=== PATIENT | female | born 1990 | race Caucasian/White ===

== ENCOUNTER 2024-02-23 11:22 | Emergency (ER) | payer OTHER, SELFPAY ==
[2024-02-23 11:25] VITALS: BP 143/99; PULSE 101; RESP 20; TEMP 36.5; O2SAT 100; BMI 31.3
--- NOTE | 2024-02-23 11:27 | ECG_ITS ---
Test Reason : ALLERGIC REACTION Blood Pressure : / mmHG Vent. Rate : 080 BPM Atrial Rate : 080 BPM P-R Int : 152 ms QRS Dur : 078 ms QT Int : 370 ms P-R-T Axes : 057 077 058 degrees QTc Int : 426 ms Normal sinus rhythm Septal infarct , age undetermined Abnormal ECG When compared with ECG of 16-DEC-2017 07:15, No significant change was found Referred By: Deanna Levin Electronically Signed By:John Davis
--- NOTE | 2024-02-23 11:27 | ED.ALLEREA ---
HPI - Allergic Reaction General Chief complaint: Allergic Reaction Stated complaint: Allergic reaction? Hives, SOB Time Seen by Provider: 02/23/24 11:42 Related Data Previous Rx's ?Medication ?Instructions ?Recorded diphenhydramine HCl 25 mg capsule 25 mg PO TID PRN allergic reaction 02/23/24 (Benadryl) #21 caps famotidine 40 mg tablet (Pepcid) 40 mg PO DAILY 5 days #5 tabs 02/23/24 prednisone 20 mg tablet 40 mg (2 x 20 mg) PO DAILY 5 days 02/23/24 #10 tabs Allergies Allergy/AdvReac Type Severity Reaction Status Date / Time sulfamethoxazole Allergy Intermediate HIVES Verified 02/23/24 11:27 [From BACTRIM] trimethoprim [From BACTRIM] Allergy Intermediate HIVES Verified 02/23/24 11:27 Penicillins [PENICILLINS] Allergy Unknown RASH Verified 02/23/24 11:27 PMF Social History Social History Advance Directives: No Advance Directives Information Provided: Yes Do you have a plan to hurt others: No Plan Physical Exam ED Vital Signs: Vital Signs - 24 hr 02/23/24 11:25 02/23/24 15:39 Temperature 97.7 F 97.7 F Pulse Rate 101 H 101 H Respiratory Rate 20 20 Blood Pressure 143/99 H 143/99 H Pulse Oximetry 100 100 Oxygen Delivery Method Room Air Room Air BMI result Body Mass Index 31.3 Course Course Course Narrative: This is a Rapid Medical Examination (RME) performed by Rosita Levin PA-C in triage. Full HPI, ROS, assessment and treatment plan per primary provider in the Main ED. 33 yo female here for eval of allergic rxn. reports eating 4 mini donuts and a coffee around 1100 (30 mins [employer]). shortly after began to feel SOB and noticed hives to her neck and back. reports taking 4 benadryl [employer]. unclear what she is allergic to. does not know if there were nuts within the donuts of coffee. only reports allergies to antibiotics. + tachycardic to 101, satting 100% on RA. anxious, tremulous. hives noted to neck, anterior chest. no sloughing.v airway patent. speaking in full sentences. coughing. lungs clear. 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 Reevaluation(s) Reevaluation #1: This is a duplicate note. Please see Colin Thompson completed note regarding patient's visit on 02/23/2024. Medications Administered Discontinued Medications Generic Name Dose Route Start Last Admin Trade Name Luis Danielq PRN Reason Stop Dose Admin Famotidine 20 mg 02/23/24 11:43 02/23/24 11:53 Famotidine/Pf 20 Mg/2 Ml Vial IVPUSH 02/23/24 11:44 20 mg ONCE ONE Administration Methylprednisolone Sodium Succinate 125 mg 02/23/24 11:43 02/23/24 11:52 Methylprednisolone Sod Succ 125 Mg/2 Ml Vial IVPUSH 02/23/24 11:44 125 mg ONCE ONE Administration Medical Decision Making Lab Data 02/23/24 11:34 02/23/24 11:34 Labs: Lab Results 02/23/24 Range/Units 11:34 WBC 6.4 (4.8-10.8) X10*3/uL RBC 5.15 (4.20-5.50) X10*6/uL Hgb 13.5 (12.0-16.0) g/dl Hct 42.4 (37.0-47.0) % MCV 82.3 (80.0-98.0) fL MCH 26.2 L (27.0-33.0) pg MCHC 31.8 (31.0-35.0) g/dl RDW 12.3 (11.0-16.0) % Plt Count 375 (160-400) X10*3/uL MPV 9.1 L (9.4-12.3) fL Immature Gran % (Auto) 0.5 H (0.0-0.4) % Neut % (Auto) 55.6 (45-73) % Lymph % (Auto) 32.2 (20-40) % [place] % (Auto) 9.0 (2-11) % Eos % (Auto) 1.9 (0-4) % Baso % (Auto) 0.8 (0-2) % Lymph # (Auto) 2.1 (1.2-4.9) X10*3/uL [place] # (Auto) 0.6 (0.1-1.2) X10*3/uL Eos # (Auto) 0.1 (0.0-0.4) X10*3/uL Baso # (Auto) 0.1 (0.0-0.2) X10*3/uL Abs Immat Gran (auto) 0.03 (0.00-0.03) X10*3/uL Absolute Neuts (auto) 3.6 (2.0-8.3) x10*3/uL Absolute Nucleated RBC 0.000 (0.0-0.012) X10*3/uL Nucleated RBC % (auto) 0.0 (0.0-0.2) /100WBC Sodium 141 (135-145) mmol/L Potassium 4.2 (3.3-5.1) mmol/L Chloride 106 (96-108) mmol/L Carbon Dioxide 26 (22-29) mmol/L Anion Gap 13 (12-20) BUN 12 (9-16) mg/dL Creatinine 0.85 (0.5-1.4) mg/dL Estim Creat Clear Calc 103.1 Estimated GFR > 60 Random Glucose 100 (60-115) mg/dL Calcium 10.1 (8.4-10.2) mg/dL Magnesium 1.8 (1.6-2.6) mg/dL Total Bilirubin 0.2 (0.0-1.0) mg/dL AST 23 (5-31) U/L ALT 38 H (0-31) U/L Alkaline Phosphatase 60 (39-117) U/L Total Protein 7.8 (6.5-8.0) g/dL Albumin 4.4 (3.5-5.0) g/dL Beta HCG, Quant < 2 mIU/mL Discharge Plan Discharge Clinical Impression: Allergic reaction Patient Disposition: Home, Self-Care Instructions: General Allergic Reaction (ED) Additional Instructions: You need follow-up with your primary care provider. You may need a allergy patch test. Return to the ED for swelling of the lips, swelling of tongue, shortness of breath, sensation of throat closing, worsening rash, severe itchiness, fever, chills, peeling rash, or any other concerning symptoms. Prescriptions: New diphenhydramine HCl [Benadryl] 25 mg capsule 25 mg PO TID PRN (Reason: allergic reaction) Qty: 21 0RF prednisone 20 mg tablet 40 mg PO DAILY 5 Days Qty: 10 0RF famotidine [Pepcid] 40 mg tablet 40 mg PO DAILY 5 Days Qty: 5 0RF Stand Alone Forms: Work/School Release Interventions: ED Discharge Assessment Last Done: 02/23/24 15:39 Discharge Date/Time: 02/23/24 15:40 Print Language: Setswana
[2024-02-23 11:38] LABS: MANUAL DIFF FLAG NO
--- NOTE | 2024-02-23 11:47 | ED_ITS ---
HPI - General Adult General Chief complaint: Allergic Reaction Stated complaint: Allergic reaction? Hives, SOB Time Seen by Provider: 02/23/24 11:42 Source: patient Mode of arrival: ambulatory Limitations: no limitations History of Present Illness ED Provider: Colin CHAVEZ HPI narrative: 33 yold female presents to the ED for allergic reaction after eating pre- packaged donuts. Patient states soon after eating donuts should broke out into hives with coughing and SOB. patietnt took 100mg of benadyl. Related Data Previous Rx's ?Medication ?Instructions ?Recorded diphenhydramine HCl 25 mg capsule 25 mg PO TID PRN allergic reaction 02/23/24 (Benadryl) #21 caps famotidine 40 mg tablet (Pepcid) 40 mg PO DAILY 5 days #5 tabs 02/23/24 prednisone 20 mg tablet 40 mg (2 x 20 mg) PO DAILY 5 days 02/23/24 #10 tabs Allergies Allergy/AdvReac Type Severity Reaction Status Date / Time sulfamethoxazole Allergy Intermediate HIVES Verified 02/23/24 11:27 [From BACTRIM] trimethoprim [From BACTRIM] Allergy Intermediate HIVES Verified 02/23/24 11:27 Penicillins [PENICILLINS] Allergy Unknown RASH Verified 02/23/24 11:27 Review of Systems 2 Review of Systems: allergic reaction Yes all other systems are reviewed and are negative [facility] Social History Social History Advance Directives: No Advance Directives Information Provided: Yes Do you have a plan to hurt others: No Plan Physical Exam ED Vital Signs: Vital Signs - 24 hr 02/23/24 11:25 02/23/24 15:39 Temperature 97.7 F 97.7 F Pulse Rate 101 H 101 H Respiratory Rate 20 20 Blood Pressure 143/99 H 143/99 H Pulse Oximetry 100 100 Oxygen Delivery Method Room Air Room Air BMI result Body Mass Index 31.3 Const General: cooperative, healthy appearing, comfortable, no acute distress, well developed, alert and awake Orientation/consciousness: patient oriented x3 HENMT Other: Positive for hives on face without any lip swelling, tongue swelling, or uvula swelling. Head: Yes normal to inspection, Yes No palpable skull fracture present and Yes normocephalic Eyes General: appearance normal, both eyes and all related structures Neck Other: Positive for hives Neck: Yes normal visual inspection, Yes full ROM, Yes no lymphadenopathy and Yes no meningeal signs Chest Other: Positive hives Chest palpation & inspection: normal inspection of the chest and normal palpation of entire chest wall Resp Effort & Inspection: normal respiratory effort and able to speak in complete sentences Auscultation: clear to auscultation bilaterally Cardio Jugular venous distension: no JVD Heart sounds: S1 normal heart sound present and S2 normal heart sound present GI Other: Positive hives Inspection: Yes normal to inspection Palpation (GI): Soft to palpation, not firm, nontender, no guarding and not rigid General: Yes no CVA tenderness Back/Spine/Pelvis Other: hives Back: no CVA tenderness and No back tenderness Skin General skin exam: no rashes or lesions noted, elasticity normal and turgor normal Neuro General: patient oriented x3, gait normal, tone normal, moves all extremities, Normal light touch and pain sensation, no meningeal signs, no focal motor deficits, CN's II-XI intact bilaterally and normal sensation to monofilament Extrem General: Yes normal to inspection, Yes full ROM and Yes capillary refill normal Psych Appearance: grossly normal, well kempt and not disheveled Medications Administered Discontinued Medications Generic Name Dose Route Start Last Admin Trade Name Freq PRN Reason Stop Dose Admin Famotidine 20 mg 02/23/24 11:43 02/23/24 11:53 Famotidine/Pf 20 Mg/2 Ml Vial IVPUSH 02/23/24 11:44 20 mg ONCE ONE Administration Methylprednisolone Sodium Succinate 125 mg 02/23/24 11:43 02/23/24 11:52 Methylprednisolone Sod Succ 125 Mg/2 Ml Vial IVPUSH 02/23/24 11:44 125 mg ONCE ONE Administration Medical Decision Making Medical Decision Making [facility] Narrative: 33-year-old presents as allergic reaction. Not in any respiratory distress. Patient has already received Benadryl 100 mg. Will give Solu-Medrol 125 and Pepcid and re-evaluate. Lungs are clear. 3:31pm: Patient is observed in the ED for 4 hours. Hives resolved. Patient not anaphylaxis. Patient informed to follow-up with primary care provider. Patient discharged with Benadryl, prednisone, and Pepcid. Patient explained worrisome signs and informed to return to the ED immediately. Not suspecting David Elton syndrome, cellulitis, erysipelas, shingles, or any other life- threatening concerning etiology Differential Diagnosis Differential Diagnoses: The differential diagnosis associated with the presentation includes (Allergic reaction) Admission/Observation Consideration of admission/observation: Escalation of care including admission/observation considered Lab Data 02/23/24 11:34 02/23/24 11:34 Labs: Lab Results 02/23/24 Range/Units 11:34 WBC 6.4 (4.8-10.8) X10*3/uL RBC 5.15 (4.20-5.50) X10*6/uL Hgb 13.5 (12.0-16.0) g/dl Hct 42.4 (37.0-47.0) % MCV 82.3 (80.0-98.0) fL MCH 26.2 L (27.0-33.0) pg MCHC 31.8 (31.0-35.0) g/dl RDW 12.3 (11.0-16.0) % Plt Count 375 (160-400) X10*3/uL MPV 9.1 L (9.4-12.3) fL Immature Gran % (Auto) 0.5 H (0.0-0.4) % Neut % (Auto) 55.6 (45-73) % Lymph % (Auto) 32.2 (20-40) % [place] % (Auto) 9.0 (2-11) % Eos % (Auto) 1.9 (0-4) % Baso % (Auto) 0.8 (0-2) % Lymph # (Auto) 2.1 (1.2-4.9) X10*3/uL [place] # (Auto) 0.6 (0.1-1.2) X10*3/uL Eos # (Auto) 0.1 (0.0-0.4) X10*3/uL Baso # (Auto) 0.1 (0.0-0.2) X10*3/uL Abs Immat Gran (auto) 0.03 (0.00-0.03) X10*3/uL Absolute Neuts (auto) 3.6 (2.0-8.3) x10*3/uL Absolute Nucleated RBC 0.000 (0.0-0.012) X10*3/uL Nucleated RBC % (auto) 0.0 (0.0-0.2) /100WBC Sodium 141 (135-145) mmol/L Potassium 4.2 (3.3-5.1) mmol/L Chloride 106 (96-108) mmol/L Carbon Dioxide 26 (22-29) mmol/L Anion Gap 13 (12-20) BUN 12 (9-16) mg/dL Creatinine 0.85 (0.5-1.4) mg/dL Estim Creat Clear Calc 103.1 Estimated GFR > 60 Random Glucose 100 (60-115) mg/dL Calcium 10.1 (8.4-10.2) mg/dL Magnesium 1.8 (1.6-2.6) mg/dL Total Bilirubin 0.2 (0.0-1.0) mg/dL AST 23 (5-31) U/L ALT 38 H (0-31) U/L Alkaline Phosphatase 60 (39-117) U/L Total Protein 7.8 (6.5-8.0) g/dL Albumin 4.4 (3.5-5.0) g/dL Beta HCG, Quant < 2 mIU/mL Independent Interpretation I performed an independent interpretation of an: EKG (EKG negative STEMI) Independent Historian Clinical information obtained from an independent historian. History obtained from or confirmed by: Other (Patient) External Record Review External record reviewed: Other (Prior visits) Discharge Plan Discharge Clinical Impression: Allergic reaction Patient Disposition: Home, Self-Care Instructions: General Allergic Reaction (ED) Additional Instructions: You need follow-up with your primary care provider. You may need a allergy patch test. Return to the ED for swelling of the lips, swelling of tongue, shortness of breath, sensation of throat closing, worsening rash, severe itchiness, fever, chills, peeling rash, or any other concerning symptoms. Prescriptions: New diphenhydramine HCl [Benadryl] 25 mg capsule 25 mg PO TID PRN (Reason: allergic reaction) Qty: 21 0RF prednisone 20 mg tablet 40 mg PO DAILY 5 Days Qty: 10 0RF famotidine [Pepcid] 40 mg tablet 40 mg PO DAILY 5 Days Qty: 5 0RF Stand Alone Forms: Work/School Release Interventions: ED Discharge Assessment Last Done: 02/23/24 15:39 Discharge Date/Time: 02/23/24 15:40 Print Language: Maltese
[2024-02-23 11:49] LABS: Basophils Absolute Auto 0.1 X10*3/uL (0.0-0.2); Basophils Percent Auto 0.8 % (0-2); Eosinophils Absolute Auto 0.1 X10*3/uL (0.0-0.4); Eosinophils Percent Auto 1.9 % (0-4); Hematocrit 42.4 % (37.0-47.0); Hemoglobin 13.5 g/dl (12.0-16.0); Imm Gran Abs Auto 0.03 X10*3/uL (0.00-0.03); Imm Gran Pct Auto 0.5 % (0.0-0.4); Lymphocytes Absolute Auto 2.1 X10*3/uL (1.2-4.9); Lymphocytes Percent Auto 32.2 % (20-40); Mean Corpuscular HGB Conc 31.8 g/dl (31.0-35.0); Mean Corpuscular Hemoglobin 26.2 pg (27.0-33.0); Mean Corpuscular Volume 82.3 fL (80.0-98.0); Mean Platelet Volume 9.1 fL (9.4-12.3); Monocytes Absolute Auto 0.6 X10*3/uL (0.1-1.2); Neutrophils Absolute Auto 3.6 x10*3/uL (2.0-8.3); Neutrophils Percent Auto 55.6 % (45-73); Platelet Count 375 X10*3/uL (160-400); Red Blood Count 5.15 X10*6/uL (4.20-5.50); Red Cell Distribution Width 12.3 % (11.0-16.0); White Blood Count 6.4 X10*3/uL (4.8-10.8)
[2024-02-23] MEDS: methylPREDNISolone Sod Succ 125 MG/2 ML VIAL IVPUSH (11:52)
[2024-02-23] MEDS: Famotidine/PF 20 MG/2 ML VIAL IVPUSH (11:53)
[2024-02-23 12:01] LABS: Alanine Aminotransferase 38 U/L (0-31); Albumin Level 4.4 g/dL (3.5-5.0); Alkaline Phosphatase 60 U/L (39-117); Anion Gap 13 (12-20); Aspartate Amino Transferase 23 U/L (5-31); Bilirubin Total 0.2 mg/dL (0.0-1.0); Blood Urea Nitrogen 12 mg/dL (9-16); Calcium 10.1 mg/dL (8.4-10.2); Carbon Dioxide 26 mmol/L (22-29); Chloride 106 mmol/L (96-108); Creatinine Clr Calc Pharmacy 103.1; Estimated Glomerular Filt Rate > 60; Glucose Random 100 mg/dL (60-115); Magnesium 1.8 mg/dL (1.6-2.6); Potassium 4.2 mmol/L (3.3-5.1); Sodium 141 mmol/L (135-145); Total Protein 7.8 g/dL (6.5-8.0)
[2024-02-23 12:02] LABS: HCG Quantitative < 2 mIU/mL
[2024-02-23 15:39] VITALS: BP 143/99; PULSE 101; RESP 20; TEMP 36.5; O2SAT 100
== END 2024-02-23 15:40 | disposition home or self-care (01) ==
PROVIDERS: Physician Assistant Medical; Emergency Provider Student in an Organized Health Care Education/Training Program; PCP Internal Medicine
DX: L50.0 Allergic urticaria (principal); R06.02 Shortness of breath; R05.9 Cough, unspecified; R94.31 Abnormal electrocardiogram [ECG] [EKG]; T78.1XXA Other adverse food reactions, not elsewhere classified, initial encounter; X58.XXXA Exposure to other specified factors, initial encounter; Z79.899 Other long term (current) drug therapy
CPT/HCPCS: 36415; 80053; 83735; 84702; 85025; 93005; 96374; 96375; 99283; 99284; J2919

== ENCOUNTER → 2024-02-23 11:27 | Outpatient (BNV) | payer OTHER, SELFPAY | PROVIDERS: Emergency Provider Student in an Organized Health Care Education/Training Program; PCP Internal Medicine; Visit Provider Internal Medicine Cardiovascular Disease | DX: R94.31 Abnormal electrocardiogram [ECG] [EKG] (principal) | CPT/HCPCS: 93010 ==

== ENCOUNTER → 2025-03-10 00:22 | Outpatient (BNV) | payer OTHER, SELFPAY | PROVIDERS: Emergency Provider Emergency Medicine; PCP Internal Medicine; Visit Provider Radiology Diagnostic Radiology | DX: R07.89 Other chest pain (principal) | CPT/HCPCS: 71046 ==

== ENCOUNTER 2025-03-10 23:29 | Emergency (ER) | payer OTHER, SELFPAY ==
--- OUTSIDE RECORDS SUMMARY | 2025-03-08 14:00 | XMS_ITS | Encounter Summary ---
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 Name Role Phone Edouard Gomez MD Primary Care Provider [phone] Reason for Referral * Other Medical (Routine) - Closed Specialty Diagnoses / Procedures Referred By Mariaelena iglesias Referred To Contact Sleep Medicine Diagnoses Obesity (BMI 30-39.9) Snoring Procedures Polysomnography Phoebe Caceres PA [address] [place] [address] Phone: tel: fax: Sleep Medicine Services [address] [address] Phone: tel: fax: Referral ID Status Reason Start Date Expiration Date Visits Re quested Visits Authorized [id number] Closed 03/08/2025 03/08/2026 1 1 * Medications - Closed Specialty Diagnoses / Procedures Referred By Mariaelena iglesias Referred To Contact Diagnoses Obesity (BMI 30-39.9) Phoebe Caceres PA [address] [place] [address] Phone: tel: fax: Referral ID Status Reason Start Date Expiration Date Visits Re quested Visits Authorized [id number] Closed 1 1 Reason for Visit * Reason Comments Follow-up Encounter Details Date Type Department Care Team ([facility] Contact Info) Description 03/08/2025 2:00 PM EST Office Visit Adult Medicine [facility] [address] [place], [place] [phone] Phoebe Caceres PA [address], [place] Obesity (BMI 30-39.9) (Primary Dx); Snoring; Mild persistent asthma with acute exacerbation Social History Tobacco Use Types Packs/Day Years Used Date Smoking Tobacco: Former Smokeless Tobacco: Never Tobacco Cessation:Counseling Given: Not Answered Alcohol Use Standard Drinks/Week Comments Yes 0 (1 standard drink = 0.6 oz pur e alcohol) Housing Instability Answer Date Recorde d Are you worried that in the next 2 months you may not have stable housing? No 03/07/2025 Food Access & Nutrition Answer Date Rec orded Do you have access to a vari ety of food including fruits and vegetables? Yes 03/07/2025 Access to Healthcare Answer Date Record ed Within the last 3 months, ho w many times did you visit the emergency department for your medical care? 0 03/07/2025 Health Literacy Answer Date Recorded How often do you need to hav e someone help you when you read instructions, pamphlets, or other written material from your doctor or pharmacy? Never 03/07/2025 Caregiver: How often do you need to have someone help you when you read instructions, pamphlets, or other written material from your doctor or pharmacy? Not on file 03/07/2025 Financial Risk Answer Date Recorded How hard is it for you to pa y for the very basics like food, housing, medical care, and air conditioning / heating? Not very hard 03/07/2025 Transportation Answer Date Recorded Has the lack of transportati on kept you from meetings, work, or from getting things needed for daily living? No Has the lack of transportati on kept you from medical appointments or from getting medications? No 03/07/2025 Social Isolation Answer Date Recorded How often do you feel lonely or isolated from th ose around you? Never 03/07/2025 Food Risk Answer Date Recorded Within the past 12 months we worried whether our food would run out before we got money to buy more. Never true 03/07/2025 Within the past 12 months th e food we bought just didn't last and we didn't have money to get more. Never true 03/07/2025 Dependent Care Answer Date Recorded Do you need help finding or paying for care for your loved ones. For example, child care team lead or elderly care for an older adult? No 03/07/2025 Education Answer Date Recorded Do you think completing more education or training, like finishing a GED, going to college, or learning a trade, would be helpful for you? No 03/07/2025 Employment and Income Answer Date Recor ded During the last four weeks, have you been actively looking for work? No 03/07/2025 Living Situation Answer Date Recorded What is your living situation? Unrecognized valu e 03/07/2025 Comments No Sex and Gender Information Value Date Recorded Sex Assigned at Not on file Legal Sex Female 3:39 AM EST Gender Identity Not on file Sexual Orientation Not on file documented as of this encounter Last Filed Vital Signs Vital Sign Reading Time Taken Comments Blood Pressure 134/84 03/08/2025 2:02 PM EST Pulse 85 03/08/2025 2:02 PM EST Temperature 36.2 C (97.1 F) 03/08/2025 2:02 PM EST Respiratory Rate 15 03/08/2025 2:02 PM EST Oxygen Saturation 98% 03/08/2025 2:02 PM EST Inhaled Oxygen Concentration - - Weight 91.4 kg (201 lb 6.4 oz) 03/08/2025 2:02 P M EST Height 165.1 cm (5' 5 ) 03/08/2025 2:02 PM EST Body Mass Index 33.51 03/08/2025 2:02 PM EST documented in this encounter Ordered Prescriptions Prescription Sig Dispense Quantity Refills Last Filled Start Date End Date albuterol HFA (Proventil HFA) 90 mcg/actuation inhaler Inhale 2 puffs by mouth every 4 (four) hours if needed for wheezing or shortness of breath. 6.7 g 03/08/2025 12/19/202 6 tirzepatide, weight loss, (Zepbound) 2.5 mg/0.5 mL injectionIndicatio ns:Obesity (BMI 30-39.9) Inject 0.5 mL (2.5 mg total) under the skin every 7 (seven) days. 2 mL 1 03/08/2025 budesonide (PULMICORT) 90 mcg/actuation inhaler Inhale 1 puff by mouth 2 (two) times a day. Rinse mouth with water after use to reduce aftertaste and incidence of candidiasis. Do not swallow. 1 each 03/08/2025 5 documented in this encounter Progress Notes * JAYDE Sparks - 03/08/2025 2:00 PM EST CHIEF COMPLAINT: Follow-up IDENTIFIER: Marj Rasmussen is a 34 y.o. old female. Past medical history: Obesity History of Present Illness The patient presents for weight loss, sleep apnea, and shortness of breath. Weight Loss - She has gained weight from 166 pounds in 12/2022 to 205 pounds over two years, with nighttime overeating contributing. - She plans daily 30-minute treadmill walks and reducing nighttime eating. - Her diet varies, with large nighttime food intake leading to >3000 daily calories. - She has an appointment with a weight management clinic on 04/15/2025. 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 - She works night shifts from 2 PM to 2 AM three days a week and does not eat during shifts. - Previous GLP-1 agonists led to 25-pound weight loss, regained after discontinuation due to nausea. - She acknowledges the need to improve eating habits. Shortness of Breath - She experiences shortness of breath, increased inhaler use, and sought urgent care on Tuesday. - Chest x-ray was clear, prescribed steroids discontinued due to jitteriness and panic. - Lung function not fully recovered, uses albuterol twice daily. - Vapes nicotine since 2018, and smokes marijuana nightly for sleep. - No wheezing or shortness of breath currently, but always short of breath when walking. - Slight wheezing in bed relieved by inhaler. - Provided with nebulizer on Tuesday. - Previously used Pulmicort with difficulty. Sleep Apnea - She has loud snoring, gasping, and whistling during sleep for one year, worsening recently. - Symptoms present even at 135 pounds, worsened with new medication. 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 Diet: Consumes large amounts of food at night, minimal daytime eating Tobacco: Vapes nicotine since 2018 Recreational Drugs: Smokes marijuana nightly Sleep: Works night shifts from 2 PM to 2 AM three days a week, smokes marijuana nightly to aid sleep Wt Readings from Last 10 Encounters: 03/08/25 91.4 kg (201 lb 6.4 oz) 05/24/24 90.7 kg (200 lb) 12/14/23 79.4 kg (175 lb) 11/10/23 82.1 kg (181 lb) 10/19/23 81.6 kg (180 lb) 07/06/23 85.3 kg (188 lb) 06/27/23 85.4 kg (188 lb 3.2 oz) 05/11/23 82.4 kg (181 lb 9.6 oz) 02/08/23 79.8 kg (176 lb) 02/09/22 68.5 kg (151 lb) ROS: See HPI PAST MEDICAL HISTORY: Patient Active Problem List Diagnosis Date Noted Cannabis use disorder 10/19/2023 Obesity (BMI 30-39.9) 09/14/2023 Pure hypercholesterolemia 05/11/2023 Overweight (BMI 25.0-29.9) 05/11/2023 Bipolar 1 disorder ([facility] V24, [facility] V28) 05/11/2023 Elevated blood pressure reading 05/11/2023 Palpitations 12/25/2021 Irregular heart rate 12/25/2021 Chest pain 12/25/2021 Generalized weakness 12/25/2021 Nausea vomiting and diarrhea 06/13/2020 Generalized abdominal pain 06/13/2020 Appendicolith 06/13/2020 Anal fissure 04/04/2009 Surgical History[1] SOCIAL HISTORY: Social History Tobacco Use Smoking status: Former Smokeless tobacco: Never Substance Use Topics Alcohol use: Yes FAMILY HISTORY: Family History[2] Family Status Relation Name Status Father (Not Specified) PGF (Not Specified) Mother (Not Specified) No partnership data on file MEDICATIONS DISCONTINUED/REORDERED: Medications Discontinued During This Encounter Medication Reason buPROPion XL (WELLBUTRIN XL) 150 mg 24 hr tablet Therapy completed orlistat (XenicaL) 120 mg capsule Therapy completed ACTIVE MEDICATIONS: Medications Taking[3] ALLERGIES: Current Allergies[4] PHYSICAL EXAM: Vitals: 03/08/25 1402 BP: 134/84 Pulse: 85 Resp: 15 Temp: 36.2 ??C (97.1 ??F) SpO2: 98% Physical Exam Constitutional: Appearance: Normal appearance. She is not ill-appearing. Cardiovascular: Rate and Rhythm: Normal rate and regular rhythm. Heart sounds: No murmur heard. Neurological: Mental Status: She is alert. LABS: Results for orders placed or performed in visit on 05/25/24 Thyroid stimulating hormone with reflex to free t4 and free t3 Collection Time: 05/25/24 11:48 AM Result Value Ref Range TSH 1.25 0.40 - 4.00 mcIU/mL Cortisol Collection Time: 05/25/24 11:48 AM Result Value Ref Range Cortisol 13.0 mcg/dL Lipid panel with reflex to direct LDL Collection Time: 05/25/24 11:48 AM Result Value Ref Range Cholesterol 147 0 - 200 mg/dL Triglycerides 105 0 - 150 mg/dL HDL 47 >=40 mg/dL LDL Calculated 79 0 - 100 mg/dL VLDL Cholesterol Xavier 21 mg/dL Non HDL Chol. (LDL+VLDL) 100 <145 mg/dL Chol/HDL Ratio 3.1 0.0 - 4.4 IMAGING: No imaging ordered IMPRESSION: 1. Obesity (BMI 30-39.9) 2. Snoring 3. Mild persistent asthma with acute exacerbation Assessment & Plan 1. Obesity - Nocturnal eating and marijuana use may stimulate appetite. - Advised to consume majority of calories during the day and limit daily intake - Emphasized lifestyle modifications with medication for effective weight loss. Encouraged gradual exercise incorporation. - No family history of thyroid disorders, no history of pancreatitis - Prescribed Zepbound, instructed on administration. Advised alternative sleep induction methods instead of marijuana. 2. Snoring: suspected sleep apnea - Referred for sleep study to confirm diagnosis. - If confirmed, CPAP machine necessary for treatment. 3. Asthma with recent exacerbation - Recently was on prednisone - She is still experiencing intermittent wheezing - Prescribed Pulmicort twice daily, refill for albuterol. - Will obtain report from [facility] for further evaluation. Follow-up - Follow up in 6 weeks. I have obtained verbal consent from Marj Noriega Catherinejose f prior to the recording. I have advised Marj Rasmussen that she may refuse the recording and require the recording to be turned off at any time during this encounter. I have applied the code G2211 to this patient's visit as part of the primary care provider team dealing with multiple comorbid conditions, coordinating with the referrals and health maintenance. All questions and concerns were addressed. Marj Rasmussen verbalizes understanding and agreeswith this treatment plan. Patient was reminded to call or return to the office if any new or existing problems arise. Orders Placed This Encounter Procedures Polysomnography None JAYDE Sparks on 03/08/2025 at 2:42 PM EST Today's documentation was made using voice recognition software.This note may contain grammatical errors secondary to this software. [1] Past Surgical History: Procedure Laterality Date FLEXIBLE SIGMOIDOSCOPY 04/04/2009 PROCEDURE: SD SIGMOIDOSCOPY FLX DX W/COLLJ SPEC BR/WA IF PFRMD; COMMENT: Normal to 60 cm [2] Family History Problem Relation Name Age of Onset Diabetes Father Hypertension Father Colon cancer Paternal Grandfather Depression Mother [3] Outpatient Medications Marked as Taking for the 03/08/25 encounter (Office Visit) with JAYDE Sparks Medication Sig Dispense Refill OXcarbazepine (TRILEPTAL) 150 mg tablet Take 2 tablets (300 mg total) by mouth 2 (two) times a day. [4] Allergies Allergen Reactions Paroxetine Manic reaction Penicillin G Benzathine hives Sulfamethoxazole-Trimethoprim Rash documented in this encounter Plan of Treatment Upcoming Encounters Date Type Department Care Team (Late st Contact Info) Description 04/19/2025 11:15 AM EST Office Visit Adult Medicine [address] [phone] Phoebe Caceres PA [address] [place] [address] Scheduled Orders Name Type Priority Associated Diagnoses Orde r Schedule Polysomnography Sleep Center Routine Obesity (BMI 30-39.9) Snoring 1 Occurrences starting 03/08/2025 until 03/08/2026 documented as of this encounter Visit Diagnoses Diagnosis Obesity (BMI 30-39.9)- Primary Snoring Other dyspnea and respiratory abnormality Mild persistent asthma with acute exacerbation documented in this encounter Discontinued Medications Medication Sig Discontinue Reason Start Date End Da te buPROPion XL (WELLBUTRIN XL) 150 mg 24 hr tablet 1 tablet (150 mg total). Therapy completed 05/16/2024 03/08/2025 orlistat (XenicaL) 120 mg capsuleIndications:Obesi ty (BMI 30-39.9) Take 1 capsule (120 mg total) by mouth 3 (three) times a day with meals. Therapy completed 05/24/2024 03/08/2025 documented as of this encounter Historical Medications * This list may reflect changes made after this encounter. OXcarbazepine (TRILEPTAL) 150 mg tablet Take 2 tablets (300 mg total) by mouth 2 (two) times a day. 02/26/2025 added in this encounter Additional Health Concerns Assessment Noted Time PHQ-9 Depression Total Score: 0 03/07/20 25 8:43 PM EST documented as of this encounter Care Teams Identification Printing Machine Setter Relationship Specialty Start Date End Date Edouard Gomez MD [address] [place] [address] PCP - General Internal Medicine 01/06/22 documented as of this encounter
--- NOTE | ~2025-03-10 | XR_ITS ---
CLINICAL HISTORY: left sided chest pain 2 view chest x-ray. Comparison: None provided. Findings: No consolidation, pneumothorax, or effusion. Heart size normal. No acute fracture visualized. Impression: 1. No acute cardiopulmonary process. No focal pulmonary consolidation. This document has been electronically signed by: Polo Brown MD on 03/11/2025 01:04:06
--- NOTE | 2025-03-10 23:30 | ECG_ITS ---
Test Reason : CHEST PAIN Blood Pressure : */* mmHG Vent. Rate : 102 BPM Atrial Rate : 102 BPM P-R Int : 134 ms QRS Dur : 74 ms QT Int : 338 ms P-R-T Axes : 23 83 55 degrees QTcB Int : 440 ms Sinus tachycardia Septal infarct (cited on or before 23-Feb-2024) Abnormal ECG When compared with ECG of 23-Feb-2024 11:50, No significant change was found Referred By: Generic ED Physician Electronically Signed By: SANDY AHMADI MD
[2025-03-10 23:34] VITALS: BP 161/107; PULSE 101; RESP 22; O2SAT 100; BMI 34.3
--- NOTE | 2025-03-10 23:51 | ED.CHESTPAIN ---
HPI - Chest Pain General Chief Complaint: Chest Pain Stated Complaint: chest pain Time Seen by Provider: 03/10/25 23:51 History of Present Illness ED Provider: Tiara DENISE narrative: The patient is a 34-year-old female with a history of asthma. She says that she has had some symptoms of chest pain and shortness of breath for the last few days. These symptoms became significantly worse this evening and she came to the emergency room. She says that she has pain in her mid chest when she breathes. She has had no pain or swelling in her legs. She has had no definite fever, sweats, chills. She says that last week she was having some shortness of breath and she was put on a course of prednisone that she did not really feel was helpful. She has also been under a great deal of stress because of a health problem with her dog. The patient is not on oral contraceptives or any similar hormonal therapy. The patient has been using nicotine vaping. She is trying to wean herself off the nicotine vaping. Related Data Home Medications ?Medication ?Instructions ?Recorded ?Confirmed aripiprazole 5 mg tablet (Abilify) 5 mg PO DAILY 02/07/25 lorazepam 1 mg tablet 1 mg PO BID PRN 02/07/25 oxcarbazepine 150 mg tablet 300 mg PO 02/07/25 Allergies Allergy/AdvReac Type Severity Reaction Status Date / Time sulfamethoxazole (From Allergy Intermediate HIVES Verified 03/10/25 23:34 BACTRIM) trimethoprim (From BACTRIM) Allergy Intermediate HIVES Verified 03/10/25 23:34 Penicillins (PENICILLINS) Allergy Unknown RASH Verified 03/10/25 23:34 Review of Systems Review of Systems: Yes all other systems are reviewed and are negative [facility] Past Medical History Surgical History Hx of cholecystectomy History of endoscopy Hx of colonoscopy Family History Family History (Updated 02/07/25 @ 10:53 by Juliana Bravo CMA) Mother No problems noted. Father No problems noted. Social History Social History (Updated 02/07/25 @ 10:54 by Juliana Bravo CMA) Alcohol intake: current Alcohol intake frequency: does not drink Patient Tobacco Use Status: Never used Tobacco Smoked in Last 30 Days: No e-Cigarette/Vaping Use: Currently Using Use of substances other than those prescribed or required for medical reasons: No Advance Directives: No Advance Directives Information Provided: No Do you have a plan to hurt others: No Plan Patient : No Physical Exam Vital Signs: Vital Signs: Last Vital Signs Temp 0 F L 03/11/25 02:04 Pulse 84 03/11/25 02:04 Resp 18 03/11/25 02:04 BP 138/91 H 03/11/25 02:04 Pulse Ox 99 03/11/25 02:04 O2 Del Method Room Air 03/11/25 02:04 BMI result Body Mass Index 34.3 Const: Other: The patient is awake, alert, pleasant, cooperative. She does not appear in overt distress. Orientation/consciousness: patient oriented x3 HEENT: Other: The face is symmetrical. Mucous membranes moist. Eyes: Other: Pupils are round equal, conjunctivae are clear, extraocular movements intact Neck: Neck: Yes normal visual inspection, Yes full ROM and Yes no JVD Chest: Other: There is some left-sided chest wall tenderness Resp: Effort & Inspection: normal respiratory effort Auscultation: clear to auscultation bilaterally Cardio: Rate: tachycardic Rhythm: regular rhythm Heart sounds: S1 normal heart sound present and S2 normal heart sound present GI: Other: Pupils are round equal, conjunctivae are clear, extraocular movements intact Skin: Other: The skin is dry and unremarkable Neuro: General: patient oriented x3, gait normal, tone normal, moves all extremities, no focal motor deficits and CN's II-XI intact bilaterally Extrem: Other: There is no calf swelling or tenderness. No asymmetry. No peripheral edema. Medications Administered Discontinued Medications Generic Name Dose Route Start Last Admin Trade Name Freq PRN Reason Stop Dose Admin Albuterol/Ipratropium 3 ml 03/11/25 00:19 03/11/25 00:34 Albuterol/Iprat 2.5/0.5mg 3 Ml Ampul.Neb INHALE 03/11/25 00:20 3 ml ONCE ONE Administration Sodium Chloride 1,000 mls @ 999 mls/hr 03/11/25 00:15 03/11/25 01:43 Ns IV 03/11/25 01:15 Infused .Q1H1M SATINDER Infusion Acetaminophen 1,000 mg in 100 mls @ 400 mls/hr 03/11/25 00:47 03/11/25 01:43 Ofirmev IV 03/11/25 01:01 Infused ONCE ONE Infusion Ketorolac Tromethamine 15 mg 03/11/25 00:47 03/11/25 01:16 Ketorolac Tromethamine 15 Mg/Ml Vial IVPUSH 03/11/25 00:48 15 mg ONCE ONE Administration Medical Decision Making Medical Decision Making [facility] Narrative: the patient is a 34-year-old female with a history of asthma who has been having some respiratory symptoms intermittently over the last week or 2. She was put on a course of prednisone for 4 days starting 7 days ago. She also uses nicotine vapes although she is trying to cut back. This evening her symptoms worsened significantly with a sense of anterior chest pain and pain with breathing. On exam the patient had fairly clear lungs bilaterally. She was somewhat hypertensive and tachycardic. Overall my suspicion for a pulmonary embolism was not very high. She was somewhat tachycardic so a D-dimer was sent. This was undetectable. I think this makes a pulmonary embolism extremely unlikely. At the patient's request she was given a bronchodilator updraft treatment. She reported that this helped his shortness of breath a great deal. she continued to complain of pains in her chest. She was given ketorolac and IV acetaminophen. Her chest x-ray is clear. She has tested negative for the flu. Overall the patient has been reassured. I think she may be discharged. She says that she has a prescription for Pulmicort waiting for her. She can pick this up tomorrow she thinks. On re-examination the patient had very clear lungs. The patient says that she does not enjoy being on prednisone. I am not sure there is a clear indication for prednisone. She will be discharged with reassurance and with instructions to continue her Pulmicort and to follow up with the regular doctor. She was given a work note for the next 2 days. She should return to the emergency room if worse. Lab Data 03/10/25 23:48 03/10/25 23:48 Labs: Lab Results 03/10/25 03/11/25 Range/Units 23:48 00:15 WBC 11.4 H (4.8-10.8) X10*3/uL RBC 5.11 (4.20-5.50) X10*6/uL Hgb 13.6 (12.0-16.0) g/dl Hct 42.0 (37.0-47.0) % MCV 82.2 (80.0-98.0) fL MCH 26.6 L (27.0-33.0) pg MCHC 32.4 (31.0-35.0) g/dl RDW 12.8 (11.0-16.0) % Plt Count 341 (160-400) X10*3/uL MPV 8.8 L (9.4-12.3) fL Immature Gran % (Auto) 0.4 (0.0-0.4) % Neut % (Auto) 64.0 (45-73) % Lymph % (Auto) 26.4 (20-40) % Carroll % (Auto) 7.1 (2-11) % Eos % (Auto) 1.7 (0-4) % Baso % (Auto) 0.4 (0-2) % Lymph # (Auto) 3.0 (1.2-4.9) X10*3/uL Carroll # (Auto) 0.8 (0.1-1.2) X10*3/uL Eos # (Auto) 0.2 (0.0-0.4) X10*3/uL Baso # (Auto) 0.1 (0.0-0.2) X10*3/uL Abs Immat Gran (auto) 0.05 H (0.00-0.03) X10*3/uL Absolute Neuts (auto) 7.3 (2.0-8.3) x10*3/uL Absolute Nucleated RBC 0.000 (0.0-0.012) X10*3/uL Nucleated RBC % (auto) 0.0 (0.0-0.2) /100WBC D-Dimer High Sensitivty < 150 NG/ML Sodium 138 (135-145) mmol/L Potassium 4.0 (3.3-5.1) mmol/L Chloride 106 (96-108) mmol/L Carbon Dioxide 24 (22-29) mmol/L Anion Gap 12 (12-20) BUN 12 (9-16) mg/dL Creatinine 0.86 (0.5-1.4) mg/dL Estim Creat Clear Calc 102.2 Estimated GFR > 60 Random Glucose 117 H (60-115) mg/dL Calcium 9.7 (8.4-10.2) mg/dL Total Bilirubin 0.2 (0.0-1.0) mg/dL Direct Bilirubin < 0.2 (0.0-0.5) mg/dL AST 24 (5-31) U/L ALT 43 H (0-31) U/L Alkaline Phosphatase 68 (39-117) U/L Troponin I High Sens < 2.7 (<3.5-17.0) ng/L Total Protein 7.3 (6.5-8.0) g/dL Albumin 4.5 (3.5-5.0) g/dL Beta HCG, Quant < 2 mIU/mL Influenza Type A (PCR) NEGATIVE (Negative) Influenza Type B (PCR) NEGATIVE (Negative) RSV RNA Qual (PCR) NEGATIVE (Negative) SARS-CoV-2 RNA (RT-PCR) NEGATIVE (Negative) Discharge Plan Discharge Clinical Impression: Chest pain, Shortness of breath Patient Disposition: Home, Self-Care Instructions: Chest Wall Pain (ED) Additional Instructions: Your testing in the emergency room today is very reassuring. Your chest x-ray shows no pneumonia or other concerning finding. Your blood test shows that there was no sign of a blood clot in your lungs. There is no sign of a heart attack. I think that the pain you were experiencing in your chest might be coming from your chest wall. Please plan on using your new Pulmicort inhaler tomorrow. You may use ibuprofen and acetaminophen as needed for discomfort. Please plan on following up with your regular doctor to discuss this episode further. Return to the emergency room if you feel significantly worse. Prescriptions: No Action lorazepam 1 mg tablet 1 mg PO BID PRN aripiprazole [Abilify] 5 mg tablet 5 mg PO DAILY oxcarbazepine 150 mg tablet 300 mg PO Referrals: Edouard Gomez MD [Primary Care Provider, Internal Medicine] Stand Alone Forms: Work/School Release Interventions: ED Discharge Assessment Last Done: 03/11/25 02:04 Discharge Date/Time: 03/11/25 02:05 Print Language: Greek
[2025-03-10 23:53] LABS: Hematocrit 42.0 % (37.0-47.0); Hemoglobin 13.6 g/dl (12.0-16.0); Imm Gran Abs Auto 0.05 X10*3/uL (0.00-0.03); Imm Gran Pct Auto 0.4 % (0.0-0.4); Lymphocytes Absolute Auto 3.0 X10*3/uL (1.2-4.9); MANUAL DIFF FLAG NO; Mean Corpuscular HGB Conc 32.4 g/dl (31.0-35.0); Mean Corpuscular Hemoglobin 26.6 pg (27.0-33.0); Mean Corpuscular Volume 82.2 fL (80.0-98.0); NRBC Abs Auto 0.000 X10*3/uL (0.0-0.012); NRBC Pct Auto 0.0 /100WBC (0.0-0.2); Platelet Count 341 X10*3/uL (160-400); Red Blood Count 5.11 X10*6/uL (4.20-5.50); White Blood Count 11.4 X10*3/uL (4.8-10.8)
[2025-03-11 00:09] LABS: Alanine Aminotransferase 43 U/L (0-31); Albumin Level 4.5 g/dL (3.5-5.0); Alkaline Phosphatase 68 U/L (39-117); Anion Gap 12 (12-20); Aspartate Amino Transferase 24 U/L (5-31); Blood Urea Nitrogen 12 mg/dL (9-16); Calcium 9.7 mg/dL (8.4-10.2); Carbon Dioxide 24 mmol/L (22-29); Chloride 106 mmol/L (96-108); Creatinine Clr Calc Pharmacy 102.2; Estimated Glomerular Filt Rate > 60; Potassium 4.0 mmol/L (3.3-5.1); Sodium 138 mmol/L (135-145); Total Protein 7.3 g/dL (6.5-8.0)
[2025-03-11 00:12] LABS: Troponin-I High Sensitivity < 2.7 ng/L (<3.5-17.0)
[2025-03-11] MEDS: Albuterol/Iprat 2.5/0.5MG 3 ML AMPUL.NEB INHALE (00:34)
[2025-03-11 00:36] VITALS: RESP 18; O2SAT 98
[2025-03-11 00:45] LABS: D Dimer High Sensitivity < 150 NG/ML
--- OUTSIDE RECORDS SUMMARY | 2025-03-11 00:51 | XMS_ITS | Clinical Summary ---
Author Organization [address] [facility] Address [address] [place] [address] Phone Care Team Providers Care Computer Aided Drafter Name Role Phone Edouard Gomez MD Primary Care Provider [phone] Allergies Active Allergy Reactions Criticality Noted Date Comments Paroxetine 10/15/2020 Manic reaction Penicillin G Benzathine 02/21/2009 hives Sulfamethoxazole-Trimethoprim Rash 2019 Medications LORazepam (ATIVAN) 1 mg tablet Take 1 tablet (1 mg total) by mouth. Active ARIPiprazole (ABILIFY) 5 mg tablet Take 1 tablet (5 mg total) by mouth 1 (one) time each day in the morning. 022 Active albuterol HFA (ProAir HFA) 90 mcg/actuation inhaler Inhale 2 puffs by mouth. 021 Active ondansetron ODT (ZOFRAN-ODT) 8 mg disintegrating tablet TAKE 1 TABLET BY MOUTH EVERY 8 HOURS IF NEEDED FOR NAUSEA OR VOMITING. 20 tablet 1 025 Active nicotine polacrilex (NICORETTE) [address] 1 each (2 mg total) into mouth between cheek and gum every 2 (two) hours if needed for smoking cessation. 100 each 1 025 2025 Active OXcarbazepine (TRILEPTAL) 150 mg tablet Take 2 tablets (300 mg total) by mouth 2 (two) times a day. 12/09/2 025 Active tirzepatide, weight loss, (Zepbound) 2.5 mg/0.5 mL injectionIndicati ons:Obesity (BMI 30-39.9) Inject 0.5 mL (2.5 mg total) under the skin every 7 (seven) days. 2 mL 1 Active albuterol HFA (Proventil HFA) 90 mcg/actuation inhaler Inhale 2 puffs by mouth every 4 (four) hours if needed for wheezing or shortness of breath. 6.7 g 2025 Active beclomethasone dipropionate (Qvar RediHaler) 40 mcg/actuation HFA aerosol breath activated inhaler Inhale 1 puff by mouth 2 (two) times a day. 10.6 g 2 Active buPROPion XL (WELLBUTRIN XL) 150 mg 24 hr tablet 1 tablet (150 mg total). 2024 Discontinued(T herapy completed) orlistat (XenicaL) 120 mg capsuleIndication s:Obesity (BMI 30-39.9) Take 1 capsule (120 mg total) by mouth 3 (three) times a day with meals. 270 capsule 025 2024 Discontinued(T herapy completed) budesonide (PULMICORT) 90 mcg/actuation inhaler Inhale 1 puff by mouth 2 (two) times a day. Rinse mouth with water after use to reduce aftertaste and incidence of candidiasis. Do not swallow. 1 each 2024 Discontinued Active Problems Problem Noted Date Diagnosed Date Cannabis use disorder 10/19/2023 Obesity (BMI 30-39.9) 09/14/2023 Pure hypercholesterolemia 05/11/2023 Overweight (BMI 25.0-29.9) 05/11/2023 Bipolar 1 disorder 05/11/2023 Elevated blood pressure reading 05/11/2023 Palpitations 12/25/2021 Overview (12/22/2023): Last Assessment & Plan: Episodic palpitations without evidence of concerning arrhythmias on Holter monitor and structurally normal heart on echocardiogram I reassured the patient that the findings of isolated PACs or PVCs on a Holter monitor are benign and not associated with adverse cardiac prognosis. If she develops sustained palpitations associate with symptoms such as dizziness or presyncope then we would need to reconsider our approach and likely repeat a rhythm monitor. At this point I would not plan for routine evaluation or office I am always happy to see her on as-needed basis Irregular heart rate 12/25/2021 Chest pain 12/25/2021 Generalized weakness 12/25/2021 Nausea vomiting and diarrhea 06/13/2020 Generalized abdominal pain 06/13/2020 Appendicolith 06/13/2020 Anal fissure 04/04/2009 Overview (12/22/2023): Negative flexible sigmoidoscopy to 60 cm 04/04/2009. Encounters Date Type Department Care Team Description 03/08/2025 2:00 PM EST Office Visit Adult Medicine [address] [phone] Phoebe Caceres PA Obesity (BMI 30-39.9) (Primary Dx); Snoring; Mild persistent asthma with acute exacerbation from Last 3 Months Immunizations Immunization Administration Dates Next Due Influenza Quadravalent, MDCK , 0.5ml, preservative free (Flucelvax) 6mo and older 12/21/2021 Influenza trivalent, 0.5mL, preservative free (Fluarix; FluLaval; Fluzone) ages 6mo and older (Afluria) 3 years and older 02/19/2021 Influenza trivalent, with pr eservative (Fluzone; Afluria) 6mo and older 05/27/2011 Influenza, Unspecified 11/22/2022 MMR, measles mumps and rubel la Live (Priorix; M-M-R II) 12mo and older 03/17/2021 PPD Test 03/02/2010 Td Tetanus diptheria (Tdvax) 7yo and older 12/16 Surgical History Surgery Date Site/Laterality Comments FLEXIBLE SIGMOIDOSCOPY 04/04/2009 PROCEDURE: SD SIGMOIDOSCOPY FLX DX W/COLLJ SPEC BR/WA IF PFRMD; COMMENT: Normal to 60 cm Medical History Medical History Date Comments Anal fissure 04/04/2009 DX:Anal fissure Depression DX:Depression; C OMMENT: Followed by Nalini Cat MD, recently admitted to [facility] from 09/01/2020 to 09/08/2020 Anxiety DX:Anxiety Asthma DX:Asthma; COMME NT: Followed by [facility], seen at ED 03/23/2020 as per pulmonary notes. Family History Medical History Relation Name Comments Diabetes Father Hypertension Father Depression Mother Colon cancer Paternal Grandfather Relation Name Status Comments Father Mother Paternal Grandfather Social History Tobacco Use Types Packs/Day Years [...] care for your loved ones. For example, early childhood services coordinator or elderly care for an older adult? [...] on file Sexual Orientation Not on file Last Filed Vital Signs Vital Sign Reading [...] Mass Index 33.51 03/08/2025 2:02 PM EST Plan of Treatment Upcoming Encounters Date Type Department Care Team (Late st Contact Info) Description 04/19/2025 11:15 AM EST Office Visit Adult Medicine [address] [phone] Phoebe Caceres PA [address] [place] [address] Health Maintenance Due Date Last Done Comments Drug Screen 1988 Non-Opioid Controlled Substance Agreement 1988 Hepatitis B Vaccines (1 of 3 - 19+ 3-dose series) 09/13/2007 Pneumococcal Vaccine: Pediatrics (0 to 5 Years) and At-Risk Patients (6 to 49 Years) (1 of 2 - PCV) 09/13/2007 HPV Vaccines (1 - 3-dose SCDM series) 09/13/2015 COVID-19 Vaccine (3 - 2024- season) 2024 08/01/2020, 07/11/2020 Influenza Vaccine (#1) 2024 3, 12/21/2021, 02/19/2021, Additional history exists Cervical Cancer Screening: Pap Smear 01/22/2025 01/22/2022, 01/22/2022 Social Influencers of Health Screening 03/07/2026 03/07/2025, 05/04/2023 DTaP,Tdap,and Td Vaccines (2 - Td or Tdap) 12/17/2027 12/16/2017 Cholesterol Screening (Lipid Panel) 05/25/2029 05/25/2024, 02/11/2023, 02/11/2023 RSV Immunization Adult Patients (1 - 1-dose 75+ series) 09/13/2063 HIV Screening Completed 05/18/2010 Hepatitis C Screening Completed 05/18/2010 MMR Vaccines Aged Out 03/17/2021 No longer eligi ble based on patient's age to complete this topic Depression Screening Completed 03/07/2025, 05/11/19 HIB Vaccines Aged Out No longer eligi ble based on patient's age to complete this topic Hepatitis A Vaccines Aged Out No long er eligible based on patient's age to complete this topic IPV Vaccines Aged Out No longer eligi ble based on patient's age to complete this topic Meningococcal ACWY Vaccine Aged Out N o longer eligible based on patient's age to complete this topic Meningococcal B Vaccine Aged Out No l onger eligible based on patient's age to complete this topic RSV Immunization Patients Under 20 months Aged Out No longer eligible based on patient's age to complete this topic Varicella Vaccines Aged Out No longer eligible based on patient's age to complete this topic Procedures Procedure Name Priority Date/Time Associated Diagnosis Comments LIPID PANEL WITH REFLEX TO DIRECT LDL Routine 05/25/2024 11:48 AM EST Hyperlipidemia, unspecified hyperlipidemia type HM DEPRESSION SCREENING Routine 05/11/2023 PAP SMEAR Routine 01/22/2022 HEPATITIS C SCREENING Routine 05/18/2010 HIV SCREENING Routine 05/18/2010 from Last 3 Months or Most Recently Relevant to Health Maintenance Results * Lipid panel with reflex to direct LDL (05/25/2024 11:48 AM EST) Cholesterol 147 0 - 200 mg/dL LAB CHEMISTRY METHOD 05/25/2024 6:07 PM EST [facility] Triglycerides 105 0 - 150 mg/dL LAB CHEMISTRY METHOD 05/25/2024 6:07 PM EST [facility] HDL 47 >=40 mg/dL LAB CHEMISTRY METHOD 05/25/2024 6:07 PM EST [facility] LDL Calculated 79 0 - 100 mg/dL LAB CHEMISTRY METHOD 05/25/2024 6:07 PM EST [facility] VLDL Cholesterol Xavier 21 mg/dL LAB CHEMISTRY METHOD 05/25/2024 6:07 PM EST [facility] Non HDL Chol. (LDL+VLDL) 100 <145 mg/dL LAB CHEMISTRY METHOD 05/25/2024 6:07 PM [facility] Chol/HDL Ratio 3.1 0.0 - 4.4 LAB CHEMISTRY METHOD 05/25/2024 6:07 PM [facility] Blood Venous blood specimen / Unknown Venipuncture / Unknown 05/25/2024 11:48 AM EST 05/25/2024 11:48 AM EST us Edouard Gomez MD LAB BLOOD ORDERABLES Final Result [facility] [address] [place] [address], [place] [phone] * Depression Screening (05/11/2023) Depression Screening Abstracted Historical Provider HEALTH MAINTENANCE Final Result * Pap Smear (01/22/2022) Pap smear no interpretation , abstracted Historical Provider HEALTH MAINTENANCE Final Result * HIV Screening (05/18/2010) Pathologist [facility] [place] HIV Screening Abstracted Historical Provider HEALTH MAINTENANCE Final Result * Hepatitis C Screening (05/18/2010) Pathologist [facility] Hepatitis C Screening Abstracted [facility] Provider HEALTH MAINTENANCE Final Result from Last 3 Months or Most Recently Relevant to Health Maintenance Insurance Business e via [place] [employer] [facility] Care Teams Computer Aided Drafter Relationship Specialty Start Date End Date Edouard Gomez MD [address] [place] [address] PCP - General Internal Medicine 01/06/22
--- OUTSIDE RECORDS SUMMARY | 2025-03-11 00:51 | XMS_ITS | Data Portability ---
Author Organization [place] - [facility] Address [address] [place] [id number] Care Team Providers Care Machine Technician Name Role Phone MIS IBARRA Primary Care Provider Assessment Encounter Date Assessment Date Assessment LastModified by Organization Details LastModified Time 08/31/2022 08/31/2022 Brief Overview: 31 year old F with previous medical history of asthma, depression, anxiety with cc today of severe nausea, body aches, extreme fatigue, headache x 24 hours. Does have some epigastric pain with deep palpation. Denies chest pain, vomiting, diarrhea, cough, congestion, runny nose, urinary sx. Vital Signs: 98.7 F ear (37.06 C) 88 110 / 70 18 98 % Room Air at Rest Repeat HR post IVF 70 Exam: Alert oriented non toxic but appears fatigued laying on couch continues to state she could go back to bed and fall asleep. Drinking fluids on scene in small sips. Cardiac: RRR, no murmurs. Lungs: cta, no wheezing or coughing. GI: pain with deep palpation to epigastric area. Skin: no rashes. DDx considered, with rationale: Benzodiazapine withdrawal- possible as patient was taking daily ativan and due to RX issue had to stop for 3 days when sx started shortly after Viral illness/ flu/ covid/ mono- rapid flu and covid negative. mono is possible, however, pt does not have fever, LAD or pharyngitis gastroenteritis- possible with nausea, less likely in patient with extreme fatigue and no vomiting/ diarrhea Tick borne illness- not likely in patient without joint pain, rash, known tick bite, anemia - considered. not possible in patient not sexually active with males or receiving IVF/IUI therapy UTI/ pyelonephritis- not likely in patient without urinary sx meningitis- considered with headache and fatigue. Pt does have full ROM of Neck and is without photophobia phonophobia fever or rash Dehydration- likely, secondary to nausea and decreased po intake Reflux/ esophagitis/ gastritis- possible but is less likely in patient with only nausea gastroparesis/ esophageal stricture/ eosinophilic esophagitis- all possible with patients description of episodes over the past several months. pt has established GI doc and is going to call for follow up Proper Personal Protective Equipment (PPE), including gloves, eye protection and masks were donned and doffed appropriately and all equipment cleaned using approved technique with germicidal disposable wipes prior to and after care of this patient according to [facility] infection [facility]. Time On Scene with Patient: 00:58:35 [email or web address] Not available 08/31/2022 17:39:08 Plan of Treatment Reminders Order Date Submit Date Provider Last Modified By Organization Details Last Modified Time Details Appointments None recorded. Lab rapid flu (A+B) 2022 023 [email or web address] [id number] [facility], [address] [place], [address], 3 15:03:58 BMP + ionized calcium, serum or plasma 2022 023 [facility], [address] [facility], [place], [address], 3 05:01:43 rapid SARS CoV 2 Ag, QL IA, respiratory specimen 2022 023 [place] [id number] [facility], [address] [place], [address], 3 15:04:05 Referral None recorded. Procedures None recorded. Surgeries None recorded. Imaging None recorded. Medication Orders [facility]fran 4 mg tablet [facility]22 023 [id number], [address], [place], [address], 3 15:04:20 Zofran 2 mg/mL intravenous solution [address]/Pharmacy #[id number], [address], [place], [address], 3 15:04:08 sodium chloride 0.9 % intravenous solution 2022 023 [email or web address] [id number], [address], [place], [address], 3 15:05:54 Patient TargetsNo targets recorded. Patient Instructions Encounter Date Encounter Id Patient Instructions Last Modified By Organization Details Last Modified Time 08/31/2022 [id number] Thank you [facility] yo ur [facility]. We cannot always find the exact cause of your symptoms during your initial visit. Please follow up with your primary care provider or specialist within 24-48 hours to be rechecked or seek medical attention if your symptoms do not go away or get worse. If you develop any new or worsening symptoms and need after hours care, please go to nearest ER and/or call 911. If you have additional concerns or develop a change in your condition between 8am-10pm, please call [facility] at [phone] to help navigate your care. [email or web address] Not available 08/31/2022 17:46:04 Lab ResultsBMP + ionized calcium, serum or plasma glu: 87mg/dL ref: 70-105 BUN: 14mg/dL ref: 8-26 crea: 0.8mg/dL ref: 0.6-1.3 Na: 138mmol/L ref: 138-146 K: 3.8mmol/L ref: 3.5-4.9 cL: 105mmol/L ref: 98-109 TCO2: 21mmol/L ref: 24-29 angap: 16mmol/L ref: 10-20 ica: 1.13mmol/L ref: 1.12-1.32 HCT: 45%pcv ref: 38-51 Hb: 15.3g/dL ref: 12-17 [email or web address] Not available 08/31/2022 14:23:24 Reason for Referral None Reported. Results Created Date Observation Date Name Description Value Unit Range Abnormal Flag Note LastModifiedBy Organization Detail LastModifiedTime 09/01/19 23 08/31/2022 rapid flu (A+B) Flu A (ref: neg) negati ve Not Available [facility] [address] [place], [address], 08/31/2022 13:53:51 09/01/19 23 08/31/2022 rapid flu (A+B) Flu B (ref: neg) negati ve Not Available [facility] [address] [place], [address], 08/31/2022 13:53:51 09/01/19 23 08/31/2022 rapid flu (A+B) Control Visual ized/V alid Not Available [facility] [address] [place], [address], 08/31/2022 13:53:51 09/01/19 23 08/31/2022 rapid flu (A+B) [facility], [address] [place] [address], [id number] Not Available [facility] [address] [place], [address], 08/31/2022 13:53:51 09/01/19 23 08/31/2022 rapid SARS CoV 2 Ag, QL IA, respi rator y speci men Covid-19 (ref: neg) negati ve Not Available [facility] [address] [place], [address], 08/31/2022 14:26:53 09/01/19 23 08/31/2022 rapid SARS CoV 2 Ag, QL IA, respi rator y speci men Control Visual ized/V alid Not Available [facility] [address] [place], [address], 08/31/2022 14:26:53 09/01/19 23 08/31/2022 rapid SARS CoV 2 Ag, QL IA, respi rator y speci men Location [facility], [address] [place] [address], [phone] Not Available [facility] [address] [place], [address], 08/31/2022 14:26:53 09/01/19 23 08/31/2022 BMP + IONIZ ED CALCI UM, SERUM OR PLASM A glu 87 mg/dL 70-105 Not Available [address], [address], 08/31/2022 14:22:24 09/01/19 23 08/31/2022 BMP + IONIZ ED CALCI UM, SERUM OR PLASM A BUN 14 mg/dL 8-26 Not Available [address], [address], 08/31/2022 14:22:24 09/01/19 23 08/31/2022 BMP + IONIZ ED CALCI UM, SERUM OR PLASM A crea 0.8 mg/dL 0.6-1. 3 Not Available [address], [address], 08/31/2022 14:22:24 09/01/19 23 08/31/2022 BMP + IONIZ ED CALCI UM, SERUM OR PLASM A Na 138 mmol/ L 138-14 6 Not Available [address], [address], 08/31/2022 14:22:24 09/01/19 23 08/31/2022 BMP + IONIZ ED CALCI UM, SERUM OR PLASM A K 3.8 mmol/ L 3.5-4. 9 Not Available [address], [address], 08/31/2022 14:22:24 09/01/19 23 08/31/2022 BMP + IONIZ ED CALCI UM, SERUM OR PLASM A cL 105 mmol/ L 98-109 Not Available [address], [address], 08/31/2022 14:22:24 09/01/19 23 08/31/2022 BMP + IONIZ ED CALCI UM, SERUM OR PLASM A TCO2 21 mmol/ L 24-29 Not Available [place] [place], [address], 08/31/2022 14:22:24 09/01/19 23 08/31/2022 BMP + IONIZ ED CALCI UM, SERUM OR PLASM A angap 16 mmol/ L 10-20 Not Available [facility] [address] [place], [address], 08/31/2022 14:22:24 09/01/19 23 08/31/2022 BMP + IONIZ ED CALCI UM, SERUM OR PLASM A ica 1.13 mmol/ L 1.12-1 .32 Not Available [address], [address], 08/31/2022 14:22:24 09/01/19 23 08/31/2022 BMP + IONIZ ED CALCI UM, SERUM OR PLASM A HCT 45 %pcv 38-51 Not Available [address], [address], 08/31/2022 14:22:24 09/01/19 23 08/31/2022 BMP + IONIZ ED CALCI UM, SERUM OR PLASM A Hb 15.3 g/dL 12-17 Not Available [place] [address] [place], [address], 08/31/2022 14:22:24 Result Notes None recorded. Procedures Surgical History Date Name Laterality Status Provider Name and Address Organization Details Recorded Time 023 Medication Review completed Rachna Hernandez NP [address], [place], [address], [place] [facility] 08/31/2022 14:30:15 023 IV Start Procedure - completed Rachna Hernandez NP [address], [place], [address], [place] [facility] 08/31/2022 15:04:34 Cholecystectomy completed Rachna Hernandez NP [address], [place], [address], [place] [facility] 08/31/2022 13:53:01 Imaging Results None recorded. Procedure Notes None recorded. Medical Equipment None Reported. Allergies Allergen ID Allergen Name Allergen Category Reaction Reaction Severity Criticality Documentation Date Start Date Code Code System Note Provider Name and Address Organization Details Recorded Time 934051 Bactrim medicatio n Not available Not available Not available 08/31/2022 43961 9 RxNorm Rachna Hernandez NP [address], [place], [address], [place] [facility] 13:50:26 [id number] Product containin g penicilli n (product) medicatio n Not available Not available Not available 08/31/2022 40200 8001 SNOMED Rachna Hernandez NP [address], [place], [address], [place] [facility] 13:50:32 Medications Name Sig Start Date Stop Date Status Note LastModified by Organization Details LastModified Time azithromyci n 250 mg tablet TAKE 2 TABLETS BY MOUTH TODAY, THEN TAKE 1 TABLET DAILY FOR 4 DAYS 08/31 completed Not Available Not Available Not Available ondansetron HCl 4 mg tablet Take 1 tablet 3 times a day by oral route as directed for 5 days. active Not Available Not Available No t Available ondansetron 8 mg disintegrat ing tablet PLACE 1 TABLET ON TOP OF THE TONGUE EVERY 8 HOURS NEEDED 08/31 completed Not Available Not Available Not Available trazodone 100 mg tablet TAKE 2 TABLETS BY MOUTH EVERY NIGHT active Not Available Not Available No t Available benzonatate 100 mg capsule TAKE 1 CAPSULE BY MOUTH THREE TIMES A DAY FOR 10 DAYS 08/31 completed Not Available Not Available Not Available oseltamivir 75 mg capsule TAKE 1 CAPSULE BY MOUTH TWICE A DAY WITH MEALS FOR 5 DAYS 08/31 completed Not Available Not Available Not Available prednisone 50 mg tablet TAKE 1 TABLET BY MOUTH EVERY DAY FOR 5 DAYS 08/31 completed Not Available Not Available Not Available sodium chloride 0.9 % intravenous solution Inject 1000 mL by intraveno us route. 2022 active Not Available Not Available Not Avai lable lorazepam 1 mg tablet TAKE 1 TABLET BY MOUTH TWICE A DAY NEEDED active Not Available Not Available No t Available Zofran 2 mg/mL intravenous solution 4 mg IV administe red on scene. Time administe red:1429 2022 active Not Available Not Available Not Avai lable Junel 04/09 (21) 1 mg-20 mcg tablet TAKE 1 TABLET BY MOUTH EVERY DAY 08/31 completed Not Available Not Available Not Available Abilify 5 mg tablet Take 1 tablet every day by oral route. active Not Available Not Available No t Available bupropion HCl XL 150 mg 24 hr tablet, extended release TAKE 1 TABLET BY MOUTH EVERY DAY IN THE MORNING active Not Available Not Available No t Available Vitals Date Recorded Respiratory rate Body temperature Oxygen saturation Heart rate Systolic And Diastolic Provider Name and Address Organization Details Last Updated DateTime 3 18 /min 98.7 [degF] 98 % 88 /min 110/70 mm[Hg] Not Available [facility] 3 13:52:53 Social History Question Answer Notes LastModified by Hopper ion Details LastModified Time Tobacco Smoking Status Never Smoker Rachna Hernandez NP [address], [place], [address], [place] [facility] 08/31/2022 13:52:33 Do You Have An Advance Directive? No [email or web address] Information not available 08/31/2022 What Is Your Code Status? Full Code [email or web address] Information not available 08/31/2022 Does This Patient Have A PCP? Yes [email or web address] Information not available 08/31/2022 Is This Patient In Hospice? No [email or web address] Information not available 08/31/2022 Has Tobacco Cessation Counseling Been Provided? No [email or web address] Information not available 08/31/2022 Sex: Unknown Functional Status Question Answer Note LastModified by Organizat ion Details LastModified Time Do you use any illicit or recreational drugs? Yes Information not available 08/31/2022 Do you or have you ever used any other forms of tobacco or nicotine? No [email or web address] Information not available 08/31/2022 What is your level of alcohol consumption? Occasional [email or web address] Information not available 08/31/2022 Mental Status None recorded. Family History Relationship Description Onset Age of this Age Resolved Age Notes LastModified by Organization Details LastModified Time Father Myocardial infarction [email or web address] Not available 08/31 13:52:26 Mother Myocardial infarction [email or web address] Not available 08/31 13:52:26 Medical History Condition Response Asthma Y Gynecological HistoryNo gynecological history recorded. Obstetrics History GPAL:G 0 P 0 0 0 0 Past Encounters Encounter ID Performer Location Encounter Start Date Encounter Closed Date Diagnosis/Indication Diagnosis SNOMED-CT Code Diagnosis ICD10 Code Diagnosis IMO Codes Diagnosis Note [id number] Rachna Hernandez NP [facility] [address] [facility] [place], [place] [address] 08/31/2022 13:26:19 09/01/2022 13:43:46 Influenza-like illness 79278104 B34.9 Status of condition: Acute. Testing/Re sults: BMP showed mild dehydratio n Discussion :Pt with mild dehydratio n on BMP and exam. Sx improved after zofran and IVF. Nausea improved significan tly, able to tolerated PO fluids. No evidence of respirator y virus on scene. Possible related to benzo withdrawal as stopped taking for 3 days due to pharmacy issue. Discussed with patient sx should start to improve as now has re- started her ativan. If sx worsen or persist over the next 48-72 pt needs to follow up with PCP for likely further blood work to rule out autoimmune and communicab le diseases. Currently is stable with sx improvemen t. Plan, Medication Management & Follow-up recommenda tions:Zofr an q6h for nausea than push oral fluidsfoll ow up with PCP and Donald emergent indication s for escalation based off vital sign review and exam. Handwritte n discharge papers completed and provided to patient. All questions answered. Dehydration [id number] E86 .0 Status of condition: Acute. Testing/Re sults: BMP showed mild dehydratio n Discussion :Pt with mild dehydratio n on BMP and exam. Sx improved after zofran and IVF. Nausea improved significan tly, able to tolerated PO fluids. No evidence of respirator y virus on scene. Possible related to benzo withdrawal as stopped taking for 3 days due to pharmacy issue. Discussed with patient sx should start to improve as now has re- started her ativan. If sx worsen or persist over the next 48-72 pt needs to follow up with PCP for likely further blood work to rule out autoimmune and communicab le diseases. Currently is stable with sx improvemen t. Plan, Medication Management & Follow-up recommenda tions:Zofr an q6h for nausea than push oral fluidsfoll ow up with PCP and Donald emergent indication s for escalation based off vital sign review and exam. Handwritte n discharge papers completed and provided to patient. All questions answered. Health Concerns Section Related Observation LastModified by Organization Detai ls LastModified Time None Recorded Concern Status LastModified by Organization Details LastModified Time None Recorded Advance Directives Directive N: Payers Insurance Date Sequence Insurance Name Policy Number Policy Blackmon Covered Member ID Blackmon Member ID Guarantor Name 09/16/2022 1 [place] Marj A Pressey [id number] Marj Pressey 09/16/2022 1 [place] Marj Pressey [id number] Marj Pressey 09/16/2022 1 [employer] (MEDICAID REPLACEMENT - HMO) Marj A Pressey [id number] Marj Pressey 09/16/2022 1 [place] Marj A Pressey [id number] Marj Pressey 09/16/2022 1 [employer] (MEDICAID REPLACEMENT - HMO) Marj A Pressey [id number] Marj Pressey 09/16/2022 1 [employer] (MEDICAID REPLACEMENT - HMO) [place] Marj A Pressey [id number] Marj Pressey 09/22/2022 1 [employer] (MEDICAID REPLACEMENT - HMO) [place] Marj A Pressey [id number] Marj Pressey 09/16/2022 1 [employer] (MEDICAID REPLACEMENT - HMO) [place] Marj A Pressey [id number] Marj Pressey 09/16/2022 1 [employer] (MEDICAID REPLACEMENT - HMO) [place] Marj A Pressey [id number] Marj Pressey 09/16/2022 1 *SELF PAY* Marj Ashraf NEED [employer] ID Marj Ashraf 09/16/2022 1 [employer] (MEDICAID REPLACEMENT - HMO) EDVIN Ashraf [id number] Marj Ashraf 09/16/2022 1 *SELF PAY* Marj Ashraf [id number] Marj Ashraf Notes Date Note Type Note Provider Name and Address Organization Details Recorded Time 08/31/2022 text/html General HPI Temp late - DHReported by Patient Pt states 2 days with severe body aches, headache, night sweats. Also with severe nausea, not able to drink/ eat over past 2 days due to nausea but no vomiting. Has had about 6 oz fluid over the past 24 hours. Feeling more tired than usual, fatigued. + epigastric pain. Pt states had cholecystectomy 3 years ago and has been having reflux since gall bladder removed. Pt states that the epigastric pain that she is having right now is not completely unusual but is worse and usually is more intermittent. Describes episodes of epigastric pain where she gets the sudden pain and intolerance to sugar and has intractable vomiting and then is fine again in 24 hours happens once every couple of weeks she did have an endoscopy she thinks a few years ago that was normal prior to her cholecystectomy .Has been taking ativan daily for 1 year and ran out x 3 days and was not taking. Not sure if this is related to flu like sx. No know tick bites. No known sick contacts.LMP 1 month ago, no chance of per patient is in monogamous relationship with female partner.Denies congestion, runny nose, coughing, ear pain, sore throat, chest pain, sob. Rachna Hernandez, PAULA [address], [place], [address], [place] [facility] 08/31/2022 17:47:09 OBGyn Episode No OBEpisode recorded.
[2025-03-11 01:07] LABS: Resp Syncy Virus RNA Qual PCR NEGATIVE (Negative); SARS COV2 PCR INHOUSE NEGATIVE (Negative)
[2025-03-11 02:03] VITALS: BP 138/91; PULSE 84; RESP 18; O2SAT 99
[2025-03-11 02:04] VITALS: BP 138/91; PULSE 84; RESP 18; TEMP -17.7; TEMP 0; O2SAT 99
== END 2025-03-11 02:05 | disposition home or self-care (01) ==
PROVIDERS: Emergency Provider Emergency Medicine; PCP Internal Medicine
DX: R07.89 Other chest pain (principal); R06.02 Shortness of breath; F43.9 Reaction to severe stress, unspecified; R10.23 Pelvic and perineal pain bilateral; Z79.899 Other long term (current) drug therapy; Z03.818 Encounter for observation for suspected exposure to other biological agents ruled out
CPT/HCPCS: 36415; 71046; 80048; 80076; 84484; 84702; 85025; 85379; 87637; 93005; 94640; 96361; 96374; 96375; 99284; 99285; J0131; J1885

== ENCOUNTER → 2025-03-10 23:30 | Outpatient (BNV) | payer OTHER, SELFPAY | PROVIDERS: Emergency Provider Emergency Medicine; PCP Internal Medicine; Visit Provider Internal Medicine Cardiovascular Disease | DX: R00.0 Tachycardia, unspecified (principal); I25.2 Old myocardial infarction | CPT/HCPCS: 93010 ==